=== PATIENT | male | born 1960 | race American Indian/Alaskan Native ===

== ENCOUNTER 2020-05-20 15:19 | Emergency (ER) | payer OTHER ==
[2020-05-20 15:51] VITALS: BP 159/77
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
== END 2020-05-20 17:40 | disposition home or self-care (01) ==
LOC: ED 15:19
DX: M79.652 Pain in left thigh (principal); B02.9 Zoster without complications; Z79.899 Other long term (current) drug therapy
CPT/HCPCS: 99283